=== PATIENT | male | born 1985 | race Caucasian/White ===

== ENCOUNTER 2016-08-20 06:08 | Emergency (ER) | payer OTHER ==
[2016-08-20 06:10] VITALS: BP 138/93; PULSE 91; RESP 16; O2SAT 99
--- NOTE | 2016-08-20 06:15 | ED.REPORT ---
HPI-General Illness Date of Service August 20, 2016 ED Provider: Daniel Fink MD Patient is a 31 year old male who presents to the ED due to a needle stick, blood exposure 30 minutes ago while at work. He reports that it was a hollow needle and the blood he was exposed to was from a high risk, possible IV drug user. The patient did not see the skin break and is up to date on his immunizations. Please note I placed the cane number for the source patient in the discharge information Nursing Notes Stated Complaint: NEEDLE STICK Chief Complaint: General Complaint Nursing Notes Reviewed: Yes ([employer] not reconciled) Scheduled Emtricitabine/Tenofovir 200-300mg (Truvada 200-300 mg) 1 Each Tablet 1 TABLET PO DAILY Raltegravir Potassium (Isentress) 400 Mg Tablet 400 MG PO BID General Time Seen by MD: 06:09 Chief Complaint Other (needle stick) Hx Obtained From: Patient Arrived By: Walk-in Sudden in Onset?: Yes Onset Occurred: 16 - 30 minutes ago Caused by: Accidental Context: Occurred at: Workplace Recent Healthcare: No recent doctor visit, No recent hospitalization Similar Sx Previous: No Past Medical History Past Medical History none reported Past Surgical History none reported Smoking History Unknown if Ever Smoker Ambulatory Status Independent Review of Systems only complaint at this time was a needle stick Physical Exam Vital Signs Vital Signs Date Time Temp Pulse Resp B/P Pulse Ox O2 Delivery O2 Flow Rate FiO2 08/20/16 06:10 36.6 91 16 138/93 99 Room Air Initial VS: Reviewed, Vital signs normal General/Constitutional: Awake, Alert, No acute distress Head / Eyes: Atraumatic, Normocephalic, PERRL, EOMI Neck: Atraumatic, Full range of motion Respiratory / Chest: Atraumatic, Breath sounds NL, Breath sounds = bilat, No respiratory distress Cardiovascular: Heart rate NL, Regular rhythm, Heart sounds NL Upper Extremities Upper Extremity / MS: Atraumatic, Full range of motion Lower Extremity / Pelvis / MS: Atraumatic, Full range of motion Skin: Atraumatic, Color NL, No rash, Warm, Dry Neurologic: Oriented X3, Speech NL, No motor deficits, No sensory deficits Psychiatric: Affect NL, Mood NL Interpretation & Diagnostics Interpretation & Diagnostics: Addendum-rapid IV on source patient came back negative a number of hours later, patient updated Lab Results Interpretation Test 08/20/16 06:00 Lab Results Interpretation: CMP, Exposure panel (hepatitis serologies for baseline and HIV) pending Re-Eval/Medical Decision Med Decision/Clinical Course This is a previous healthy 31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 Injury occurred 30 minutes prior to arrival, patient already washed the hand, and has no further complaints or injuries. The patient reports he has been fully vaccinated, and claims he is a hepatitis B titer demonstrating response to vaccination. Up-to-date on tetanus. He has a normal physical exam. This case was reviewed with the exposed exposure prophylaxis hotline who agreed with initial postexposure prophylaxis. Source patient is a difficult IV start, so reviewed options awaiting to we obtained blood work and obtain a rapid HIV to determine whether or not to recommend HIV prophylaxis, but the patient is not indicates he thinks the patient's high risk enough he would like to start with the first dose-while we attempted to get blood work on the source patient successfully. This seemed eminently reasonable, and the PEP hotline agreed. A received a first dose triple therapy, and I written a 28 day course, and the need for close follow-up and recheck-particularly with the source patient's known hepatitis C report. It took about 4-5 hours before the rapid HIV return on the source patient, but fortunately was negative-5 contacted the patient update him of this finding. The need for close follow-up remains. Source of Hx: Old records Time of Eval: 07:21 Re-Evaluation/Progress Note: Discussed plan for treatment and discharge. The patient understands and agrees to the plan for discharge. All questions were addressed. Time of Eval: 11:39 Re-Evaluation/Progress Note: Checked rapid HIV test that was still pending Time of Eval: 11:42 Re-Evaluation/Progress Note: Confirmed negative HIV test Time of Eval: 12:09 Re-Evaluation/Progress Note: Called patient, informed of negative HIV Consultation : Call Returned at: 06:58 Note: Discussed patient's case with PEP hotline, who recommends Raltegravir and Truvada. Counseled Regarding: Diagnosis, Lab results, Need for follow-up, When/why to return to ED Discharge & Departure Primary Impression: Exposure to blood Disposition: Home Discharge Condition All VS Reviewed: Yes Condition: Stable Additional Instructions: 1. The current recommendations are to start the HIV prophylaxis medication Truvada 1 tab daily as well as the medication raltegravir 400mg twice a day for 28 days. 2. The source patient ([id number]) has had exposure bloodwork drawn. The lab is supposed to call me with results. I will call you at [phone]. Call here at [phone] for an update if you have not heard from me in the next few hours. 3. Records indicate that the source patient does have a reported history of hepatitis. 4. You will need to call and schedule an appointment with the Employee Health nurse for counseling and test results (call [phone] and leave a message) If you have the records, please bring confirmation of your immunity to Hepatitis B. We have drawn baseline labs today, but you will need repeat testing (usally at 6 weeks, again at 3-4 months, and 6 months) 5. Return if new or worsening symptoms Scribe Attestation Portions of this note were transcribed by Cherri Mills. I, Dr. Fink personally performed the history, physical exam and medical decision-making; I reviewed and confirmed the accuracy of the information in the transcribed note. Signed by: Alina Ramey, 08/20/16 and [id number] Daniel Fink MD August 20, 2016 06:15 Ana Mills August 20, 2016 06:23
[2016-08-20] MEDS ORDERED: Emtricitabine-Teno 200 mg-300 mg Tablet PO SCH (06:30)
[2016-08-20] MEDS ORDERED: EMTR1TAB12 PO (07:19)
[2016-08-20] MEDS ORDERED: RALT400T PO (07:19)
== END 2016-08-20 08:09 | disposition home or self-care (01) ==
LOC: SED 06:08
DX: Z77.21 Contact with and (suspected) exposure to potentially hazardous body fluids (principal); W46.0XXA Contact with hypodermic needle, initial encounter; Y93.89 Activity, other specified; Y92.238 Other place in hospital as the place of occurrence of the external cause; Y99.0 Civilian activity done for income or pay
CPT/HCPCS: 86706; 99283; G0433